=== PATIENT | female | born 1950 | race Hispanic/Latino ===

== ENCOUNTER 2022-03-25 22:14 | Emergency (ER) | payer OTHER, SELFPAY ==
--- OUTSIDE RECORDS SUMMARY | 2022-03-25 22:18 | XMS REPORT | Continuity of Care Document ---
:1950 Author Organization [facility] t Address [address] [place] [address] Care Team Providers Name Role Phone JOSE HORNE Primary Care Physician Unavailable JOSE HORNE Attending Clinician Unavailable Jose Horne MD Attending Clinician Lab, Ang - Db Attending Clinician Unavailable CLAUDIO HERNANDEZ Attending Clinician Unavailable Claudio Hernandez MD Attending Clinician Doctor Unassigned, [place] Attending Clinician Unavailable YEIMY DACOSTA Attending Clinician Unavailable Yeimy Dacosta PA-C Attending Clinician Lab, Adc Fam Pob I Attending Clinician Unavailable SARITA RITCHIE Attending Clinician Unavailable JOSE HORNE Admitting Clinician Unavailable CLAUDIO HERNANDEZ Admitting Clinician Unavailable Claudio Hernandez MD Admitting Clinician YEIMY DACOSTA Admitting Clinician Unavailable Payers Payer Name Policy Type Policy Number Effective Date Expiration Date Nelson MAYA/ALBA [id number] 2019 MEDICARE ADVANTAGE 00:00:00 Problems Condition Condition Condition Status Onset Resolution Last Treating Co mments Source Name Details Category Date Date Treatment Clinician Date Encounter Encounter Disease Active Overview: Univers for for 06-09 [place] ity of screening screening 00:00: [place] of [place] colonoscop colonoscop 00 note Me dical y y might be Branch different from the original. Added automatic ally from request for surgery [id number] Lichen Lichen Disease Active Univers sclerosus sclerosus 4-12 [place] of of [place] 00 [facility] Vaginal Vaginal Disease Active Univers itching itching 3-20 ity of 00:00: [place] [address] [place] [address] Essential Essential Disease Active 2014-03 Uni vers hypertensi hypertensi 2-28 it y of on on 00:00: [place] [address] [place] [address] Hyperlipem Hyperlipem Disease Active 2014-03 U nivers ia ia 2-28 ity of 00:00: [address] Allergies, Adverse Reactions, Alerts Allergy Allergy Status Severity Reaction(s) Onset Inactive Treating Comm ents Source Name Type Date Date Clinician Oxycodon Propensi Active Nausea 2014-03 Univer s e-Aspiri ty to and/or 2-28 ity of n adverse Vomiting 00:00: [place] reaction [facility] [place] OXYCODON DRUG Active Low N/V 2014-03 Univers E-ASPIRI 2-28 ity of N 00:00: [address] Social History Social Habit Start Date Stop Date Quantity Comments Source History SDRI University o f Alcohol Frequency [facility] edical Branch History [facility] University o f Alcohol Std [place] Medical Drinks Branch History [facility] o f Alcohol Binge [place] Medic al [place] Alcohol intake 2022-03-14 2022-03-14 0 /d University of 00:00:00 00:00:00 [facility] Exposure to 2022-01-21 2022-01-31 Not sure University SARS-CoV-2 00:00:00 09:26:00 [facility] (event) [place] Alcohol Comment 2015-11-24 2015-11-24 oocasional Universit y of 00:00:00 00:00:00 [facility] Tobacco use and 2015-03-01 2015-03-01 Smokeless tobacco Un iversity of exposure 00:00:00 00:00:00 non-user [facility] Sex Ass[birth year] At [birth year] Universit y of 00:00:00 00:00:00 [facility] Smoking Status Start Date Stop Date Source Never smoked tobacco [facility] Medications Ordered Filled Start Stop Current Ordering Indication Dosage Frequency Signature Comments Components Source Medication Medication Date Date Medication? Clinician (SIG) Name Name TOOTIEXAC 2021-03 Yes INSTILL Uni vers IN-DEXAMETH 2-05 ONE (1) ity o f ASONE 00:00: DROP(S) IN [place] 0.3-0.1 % 00 EACH EAR Medica l otic drops TWICE A Branch DAY. CIPROFLOXAC 2021-03 Yes INSTILL Uni vers IN-DEXAMETH 2-05 ONE (1) ity o f ASONE 00:00: DROP(S) IN [place] 0.3-0.1 % 00 EACH EAR Medica l otic drops TWICE A Branch DAY. atorvastati 2021-03 Yes [id number] 10mg Take 1 Univers n 10 mg 1-29 tablet by ity of tablet 00:00: mouth at [place] [address] bedtime. [facility] lisinopriL- 2021-03 Yes [id number] 1{tbl} Take 1 Univers hydrochloro 1-29 tablet by ity of thiazide 00:00: mouth in [place] 20-25 mg 00 the Medical per tablet morning. [facility] atorvastati 2021-03 Yes [id number] 10mg Take 1 Univers n 10 mg 1-29 tablet by ity of tablet 00:00: mouth at [place] 00 bedtime. [facility] lisinopriL- 2021-03 Yes [id number] 1{tbl} Take 1 Univers hydrochloro 1-29 tablet by ity of thiazide 00:00: mouth in [place] 20-25 mg 00 the Medical per tablet morning. [facility] atorvastati 2021-03 Yes [id number] 10mg Take 1 Univers n 10 mg 1-29 tablet by ity of tablet 00:00: mouth at [place] 00 bedtime. [facility] lisinopriL- 2021-03 Yes [id number] 1{tbl} Take 1 Univers hydrochloro 1-29 tablet by ity of thiazide 00:00: mouth in [place] 20-25 mg 00 the Medical per tablet morning. [facility] atorvastati 2021-03 Yes [id number] 10mg Take 1 Univers n 10 mg 1-29 tablet by ity of tablet 00:00: mouth at [place] 00 bedtime. [facility] lisinopriL- 2021-03 Yes [id number] 1{tbl} Take 1 Univers hydrochloro 1-29 tablet by ity of thiazide 00:00: mouth in [place] 20-25 mg 00 the Medical per tablet morning. [facility] atorvastati 2021-03 Yes [id number] 10mg Take 1 Univers n 10 mg 1-29 tablet by ity of tablet 00:00: mouth at [place] 00 bedtime. Medical Branch lisinopriL- 2021-03 Yes [id number] 1{tbl} Take 1 Univers hydrochloro 1-29 tablet by ity of thiazide 00:00: mouth in [place] 20-25 mg 00 the Medical per tablet morning. [facility] nirmatrelvi Yes [id number] 3{tbl} Take 3 Univers r-ritonavir 9-12 tablets by it y of (PAXLOVID, 00:00: mouth in [place] as EUA,) 300 00 the Medical mg (150 mg morning Branch x 2)-100 mg and 3 tablet tablets in the evening. nirmatrelvi Yes [id number] 3{tbl} Take 3 Univers r-ritonavir 9-12 tablets by it y of (PAXLOVID, 00:00: mouth in [place] as EUA,) 300 00 the Medical mg (150 mg morning Branch x 2)-100 mg and 3 tablet tablets in the evening. nirmatrelvi 2021- No [id number] 3{tbl} Take 3 Univers r-ritonavir 9-12 11-29 tablets by i ty of (PAXLOVID, 00:00: 00:00 [place] EUA,) 300 00 :00 the Medical mg (150 mg morning Branch x 2)-100 mg and 3 tablet tablets in the evening. nirmatrelvi 2021- No [id number] 3{tbl} Take 3 Univers r-ritonavir 9-12 11-29 tablets by i ty of (PAXLOVID, 00:00: 00:00 [place] EUA,) 300 00 :00 the Medical mg (150 mg morning Branch x 2)-100 mg and 3 tablet tablets in the evening. aspirin Yes 81mg Take 81 mg Univ ers (ASPIRIN 5-24 by mouth ity of LOW DOSE) 10:06: daily. [place] 81 mg EC 59 Medical tablet Branch Melatonin 5 0 Yes 5mg Take 5 mg U nivers mg Cap 5-24 by mouth ity of 10:06: at [place] [address] bedtime. Medical Branch cyanocobala 2021-[address] Unive rs min/cobamam 5-24 under the ity of [place] (B12 10:06: tongue. [place] [facility]) 59 Medical Branch L.acidophil 0 Yes Take by Uni vers /L.plantar/ 5-24 mouth. ity of Bifido 7 10:06: [place] ([facility] 59 Medical PROBIOTICS Branch ADULT ORAL) aspirin 2021-0 Yes 81mg Take 81 mg Univ ers (ASPIRIN 5-24 by mouth ity of LOW DOSE) 10:06: daily. [place] 81 mg EC 59 Medical tablet Branch Melatonin 5 2021-0 Yes 5mg Take 5 mg U nivers mg Cap 5-24 by mouth ity of 10:06: at [place] [address] bedtime. Medical Branch cyanocobala 2021-[address] Unive rs min/cobamam 5-24 under the ity of [place]elle (B12 10:06: tongue. [facility]) 59 Medical Branch L.acidophil 0 Yes Take by Uni vers /L.plantar/ 5-24 mouth. ity of Bifido 7 10:06: [place] ([facility] 59 Medical PROBIOTICS Branch ADULT ORAL) aspirin 2021-0 Yes 81mg Take 81 mg Univ ers (ASPIRIN 5-24 by mouth ity of LOW DOSE) 10:06: daily. [place] 81 mg EC 59 Medical tablet Branch Melatonin 5 2021-0 Yes 5mg Take 5 mg U nivers mg Cap 5-24 by mouth ity of 10:06: at [place] [address] bedtime. Medical Branch cyanocobala 2021-[address] Unive rs min/cobamam 5-24 under the ity of [place]elle (B12 10:06: tongue. [place] [facility]) 59 Medical Branch L.acidophil 2021-0 Yes Take by Uni vers /L.plantar/ 5-24 mouth. ity of Bifido 7 10:06: [place] ([facility] 59 Medical PROBIOTICS Branch ADULT ORAL) aspirin 2-0 Yes 81mg Take 81 mg Univ ers (ASPIRIN 5-24 by mouth ity of LOW DOSE) 10:06: daily. [place] 81 mg EC 59 Medical tablet Branch Melatonin 5 2021-0 Yes 5mg Take 5 mg U nivers mg Cap 5-24 by mouth ity of 10:06: at [place] [address] bedtime. Medical Branch cyanocobala 2021-[address] Unive rs min/cobamam 5-24 under the ity of [place]elle (B12 10:06: tongue. [place] [facility]) 59 Medical Branch L.acidophil 0 Yes Take by Uni vers /L.plantar/ 5-24 mouth. ity of Bifido 7 10:06: [place] ([facility] 59 Medical PROBIOTICS Branch ADULT ORAL) aspirin 2021-0 Yes 81mg Take 81 mg Univ ers (ASPIRIN 5-24 by mouth ity of LOW DOSE) 10:06: daily. [place] 81 mg EC 59 Medical tablet Branch Melatonin 5 2021-0 Yes 5mg Take 5 mg U nivers mg Cap 5-24 by mouth ity of 10:06: at [place] [address] bedtime. Medical Branch cyanocobala 2021-[address] Unive rs min/cobamam 5-24 under the ity of [place] (B12 10:06: tongue. [place] [facility]) 59 Medical Branch L.acidophil 0 Yes Take by Uni vers /L.plantar/ 5-24 mouth. ity of Bifido 7 10:06: [place] ([facility] 59 Medical PROBIOTICS Branch ADULT ORAL) aspirin 2021-0 Yes 81mg Take 81 mg Univ ers (ASPIRIN 5-24 by mouth ity of LOW DOSE) 10:06: daily. [place] 81 mg EC 59 Medical tablet Branch Melatonin 5 2021-0 Yes 5mg Take 5 mg U nivers mg Cap 5-24 by mouth ity of 10:06: at [place] [address] bedtime. Medical Branch cyanocobala 2021-[address] Unive rs min/cobamam 5-24 under the ity of [place] (B12 10:06: tongue. [place] [facility]) 59 Medical Branch L.acidophil 0 Yes Take by Uni vers /L.plantar/ 5-24 mouth. ity of Bifido 7 10:06: [place] ([facility] 59 Medical PROBIOTICS Branch ADULT ORAL) aspirin 2-0 Yes 81mg Take 81 mg Univ ers (ASPIRIN 5-24 by mouth ity of LOW DOSE) 10:06: daily. [place] 81 mg EC 59 Medical tablet Branch Melatonin 5 2021-0 Yes 5mg Take 5 mg U nivers mg Cap 5-24 by mouth ity of 10:06: at [place] [address] bedtime. Medical Branch cyanocobala [address] Unive rs min/cobamam 5-24 under the ity of [place] (B12 10:06: tongue. [place] [facility]) 59 Medical Branch L.acidophil 0 Yes Take by Uni vers /L.plantar/ 5-24 mouth. ity of Bifido 7 10:06: [place] ([facility] 59 Medical PROBIOTICS Branch ADULT ORAL) aspirin 2021-0 Yes 81mg Take 81 mg Univ ers (ASPIRIN 5-24 by mouth ity of LOW DOSE) 10:06: daily. [place] 81 mg EC 59 Medical tablet Branch Melatonin 5 2021-0 Yes 5mg Take 5 mg U nivers mg Cap 5-24 by mouth ity of 10:06: at [place] [address] bedtime. Medical Branch cyanocobala [address] Unive rs min/cobamam 5-24 under the ity of [place]elle (B12 10:06: tongue. [place] [facility]) 59 Medical Branch L.acidophil 0 Yes Take by Uni vers /L.plantar/ 5-24 mouth. ity of Bifido 7 10:06: [place] ([facility] 59 Medical PROBIOTICS Branch ADULT ORAL) aspirin 2021-0 Yes 81mg Take 81 mg Univ ers (ASPIRIN 5-24 by mouth ity of LOW DOSE) 10:06: daily. [place] 81 mg EC 59 Medical tablet Branch Melatonin 5 2021-0 Yes 5mg Take 5 mg U nivers mg Cap 5-24 by mouth ity of 10:06: at [place] [address] bedtime. Medical Branch cyanocobala [address] Unive rs min/cobamam 5-24 under the ity of [place]elle (B12 10:06: tongue. [place] [facility]) 59 Medical Branch L.acidophil 0 Yes Take by Uni vers /L.plantar/ 5-24 mouth. ity of Bifido 7 10:06: [place] ([facility] 59 Medical PROBIOTICS Branch ADULT ORAL) ciprofloxac 2021-0 Yes [id number] 1[drp] Place 1 Univers in-dexameth 5-24 Drop in ity o f asone 00:00: both ears [place] (CIPRODEX) 00 2 (two) Medica l 0.3-0.1 % times Branch otic drops daily. ciprofloxac 2022-0 Yes [id number] 1[drp] Place 1 Univers in-dexameth 5-24 Drop in ity o f asone 00:00: both ears [place] (CIPRODEX) 00 2 (two) Medica l 0.3-0.1 % times Branch otic drops daily. ciprofloxac Yes [id number] 1[drp] Place 1 Univers in-dexameth 5-24 Drop in ity o f asone 00:00: both ears [place] (CIPRODEX) 00 2 (two) Medica l 0.3-0.1 % times Branch otic drops daily. ciprofloxac Yes [id number] 1[drp] Place 1 Univers in-dexameth 5-24 Drop in ity o f asone 00:00: both ears [place] (CIPRODEX) 00 2 (two) Medica l 0.3-0.1 % times Branch otic drops daily. ciprofloxac 2021- No [id number] 1[drp] Place 1 Univers in-dexameth 5-24 11-29 Drop in ity of asone 00:00: 00:00 both ears [place] (CIPRODEX) 00 :00 2 (two) Medica l 0.3-0.1 % times Branch otic drops daily. ciprofloxac 2021- No [id number] 1[drp] Place 1 Univers in-dexameth 5-24 11-29 Drop in ity of asone 00:00: 00:00 both ears [place] (CIPRODEX) 00 :00 2 (two) Medica l 0.3-0.1 % times Branch otic drops daily. ATORVASTATI Yes [id number] TAKE ONE Univers N 10 mg 1-05 (1) ity of tablet 00:00: TABLET(S) [place] 00 BY MOUTH Medical AT Branch BEDTIME. LISINOPRIL- 0 Yes [id number] TAKE ONE Univers HYDROCHLORO 1-05 (1) ity of THIAZIDE 00:00: [place]T(S) [place] 20-25 mg 00 BY MOUTH Medical per tablet ONCE A Branch DAY. ATORVASTATI Yes [id number] TAKE ONE Univers N 10 mg 1-05 (1) ity of tablet 00:00: TABLET(S) [place] 00 BY MOUTH Medical AT [place] BEDTIME. LISINOPRIL- 2021-0 Yes [id number] TAKE ONE Univers HYDROCHLORO 1-05 (1) ity of THIAZIDE 00:00: TABLET(S) [place] 20-25 mg 00 BY MOUTH Medical per tablet ONCE A Branch DAY. ATORVASTATI 2021-0 Yes [id number] TAKE ONE Univers N 10 mg 1-05 (1) ity of tablet 00:00: TABLET(S) [place] 00 BY MOUTH Medical AT [place] BEDTIME. LISINOPRIL- 2021-0 Yes [id number] TAKE ONE Univers HYDROCHLORO 1-05 (1) ity of THIAZIDE 00:00: TABLET(S) [place] 20-25 mg 00 BY MOUTH Medical per tablet ONCE A Branch DAY. ATORVASTATI 2021-0 Yes [id number] TAKE ONE Univers N 10 mg 1-05 (1) ity of tablet 00:00: TABLET(S) [place] 00 BY MOUTH Medical AT [place] BEDTIME. LISINOPRIL- 2021-0 Yes [id number] TAKE ONE Univers HYDROCHLORO 1-05 (1) ity of THIAZIDE 00:00: TABLET(S) [place] 20-25 mg 00 BY MOUTH Medical per tablet ONCE A Branch DAY. ATORVASTATI 2021-0 2021- No [id number] TAKE ONE Univers N 10 mg -05 01-31 (1) ity of tablet 00:00: 00:00 TABLET(S) [place] 00 :00 BY MOUTH Medical AT [place] BEDTIME. LISINOPRIL- 2021-0 2- No [id number] TAKE ONE Univers HYDROCHLORO -05 01-31 (1) ity of THIAZIDE 00:00: 00:00 TABLET(S) [place] as 20-25 mg 00 :00 BY MOUTH Medical per tablet ONCE A Branch DAY. ATORVASTATI 2021-0 2021- No [id number] TAKE ONE Univers N 10 mg -05 01-31 (1) ity of tablet 00:00: 00:00 TABLET(S) [place] 00 :00 BY MOUTH Medical AT [place] BEDTIME. LISINOPRIL- 2021-0 2021- No [id number] TAKE ONE Univers HYDROCHLORO -05 01-31 (1) ity of THIAZIDE 00:00: 00:00 TABLET(S) [place] as 20-25 mg 00 :00 BY MOUTH Medical per tablet ONCE A DAY. Immunizations Ordered Filled Immunization Date Status Comments [facility] e Immunization Name Name Pneumococcal 2021-01-25 Completed University o f Polysaccharide, 00:00:00 [place] Med ical PPSV23 (PNEUMOVAX) Branch Pneumococcal 2021-01-25 Completed University o f Polysaccharide, 00:00:00 [place] Med ical PPSV23 (PNEUMOVAX) Branch Pneumococcal 2021-01-25 Completed University o f Polysaccharide, 00:00:00 [place] Med ical PPSV23 (PNEUMOVAX) Branch Pneumococcal 2021-01-25 Completed University o f Polysaccharide, 00:00:00 [place] Med ical PPSV23 (PNEUMOVAX) Branch Pneumococcal 2021-01-25 Completed University o f Polysaccharide, 00:00:00 [place] Med ical PPSV23 (PNEUMOVAX) Branch Pneumococcal 2021-01-25 Completed University o f Polysaccharide, 00:00:00 [place] Med ical PPSV23 (PNEUMOVAX) Branch Pneumococcal 2021-01-25 Completed University o f Polysaccharide, 00:00:00 [place] Med ical PPSV23 (PNEUMOVAX) Branch Pneumococcal 2021-01-25 Completed University o f Polysaccharide, 00:00:00 [place] Med ical PPSV23 (PNEUMOVAX) Branch Pneumococcal 2021-01-25 Completed University o f Polysaccharide, 00:00:00 [place] Med ical PPSV23 (PNEUMOVAX) Branch SARS-COV-2 COVID-19 2021-01-04 Completed Unive rsity of PFIZER VACCINE 00:00:00 [facility] SARS-COV-2 COVID-19 2021-01-04 Completed Unive rsity of PFIZER VACCINE 00:00:00 [facility] SARS-COV-2 COVID-19 2021-01-04 Completed Unive rsity of PFIZER VACCINE 00:00:00 [facility] SARS-COV-2 COVID-19 2021-01-04 Completed Unive rsity of PFIZER VACCINE 00:00:00 [facility] SARS-COV-2 COVID-19 2021-01-04 Completed Unive rsity of PFIZER VACCINE 00:00:00 [facility] SARS-COV-2 COVID-19 2021-01-04 Completed Unive rsity of PFIZER VACCINE 00:00:00 [facility] Branch SARS-COV-2 COVID-19 2021-01-04 Completed Unive rsity of PFIZER VACCINE 00:00:00 [facility] Branch SARS-COV-2 COVID-19 2021-01-04 Completed Unive rsity of PFIZER VACCINE 00:00:00 [facility] Branch SARS-COV-2 COVID-19 2021-01-04 Completed Unive rsity of PFIZER VACCINE 00:00:00 [facility] Branch SARS-COV-2 COVID-19 2020-05-22 Completed Unive rsity of PFIZER VACCINE 00:00:00 [facility] Branch SARS-COV-2 COVID-19 2020-05-22 Completed Unive rsity of PFIZER VACCINE 00:00:00 [facility] Branch SARS-COV-2 COVID-19 2020-05-22 Completed Unive rsity of PFIZER VACCINE 00:00:00 [facility] Branch SARS-COV-2 COVID-19 2020-05-22 Completed Unive rsity of PFIZER VACCINE 00:00:00 [facility] Branch SARS-COV-2 COVID-19 2020-05-22 Completed Unive rsity of PFIZER VACCINE 00:00:00 [facility] Branch SARS-COV-2 COVID-19 2020-05-22 Completed Unive rsity of PFIZER VACCINE 00:00:00 [facility] Branch SARS-COV-2 COVID-19 2020-05-22 Completed Unive rsity of PFIZER VACCINE 00:00:00 [facility] Branch SARS-COV-2 COVID-19 2020-05-22 Completed Unive rsity of PFIZER VACCINE 00:00:00 [facility] Branch SARS-COV-2 COVID-19 2020-05-22 Completed Unive rsity of PFIZER VACCINE 00:00:00 [facility] Branch SARS-COV-2 COVID-19 2020-05-01 Completed Unive rsity of PFIZER VACCINE 00:00:00 [facility] Branch SARS-COV-2 COVID-19 2020-05-01 Completed Unive rsity of PFIZER VACCINE 00:00:00 [facility] SARS-COV-2 COVID-19 2020-05-01 Completed Unive rsity of PFIZER VACCINE 00:00:00 [facility] Branch SARS-COV-2 COVID-19 2020-05-01 Completed Unive rsity of PFIZER VACCINE 00:00:00 [facility] SARS-COV-2 COVID-19 2020-05-01 Completed Unive rsity of PFIZER VACCINE 00:00:00 [facility] SARS-COV-2 COVID-19 2020-05-01 Completed Unive rsity of PFIZER VACCINE 00:00:00 [facility] SARS-COV-2 COVID-19 2020-05-01 Completed Unive rsity of PFIZER VACCINE 00:00:00 [facility] SARS-COV-2 COVID-19 2020-05-01 Completed Unive rsity of PFIZER VACCINE 00:00:00 [facility] SARS-COV-2 COVID-19 2020-05-01 Completed Unive rsity of PFIZER VACCINE 00:00:00 [facility] Vital Signs Vital Name Observation Time Observation Value Comments Source Systolic blood 2022-01-31 16:02:00 110 mm[Hg] Univer sity of pressure [facility] Diastolic blood 2022-01-31 16:02:00 73 mm[Hg] Unive rsity of pressure [facility] Heart rate 2022-01-31 16:02:00 86 /min Universi ty [facility] Body temperature 2022-01-31 16:02:00 [facility]11 [facility] height 2022-01-31 16:02:00 160 cm Universi ty [facility] Body weight 2022-01-31 16:02:00 56.246 kg Universi ty [facility] BMI 2022-01-31 16:02:00 21.97 kg/m2 Universi ty [facility] Systolic blood 2021-07-26 14:55:00 130 mm[Hg] Univer sity of pressure [facility] Diastolic blood 2021-07-26 14:55:00 85 mm[Hg] Unive rsity of pressure [facility] Heart rate 2021-07-26 14:55:00 69 /min Universi ty [facility] Body weight 2021-07-26 14:55:00 59.421 kg Universi ty [facility] BMI 2021-07-26 14:55:00 25.58 [facility] Procedures Procedure Date / Time Performed Performing Clinician [facility] e CONSENT/REFUSAL FOR 2022-03-14 15:45:19 Doctor Unassigned, No [facility] DIAGNOSIS AND [facility] TREATMENT ASSIGNMENT OF BENEFITS 2022-03-14 15:45:05 Doctor Unassigned, No [facility] Encounters Start End Encounter Admission Attending Care Care Encounter Source Date/Time Date/Time Type Type Clinicians Facility Department ID 2022-03-14 2022-03-14 Outpatient Choco HORNE [facility] [id number] Univers 09:45:46 23:59:00 JOSE treadwell [facility] 2022-03-14 2022-03-14 [facility] [id number] Univers 09:45:46 23:59:00 Encounter Jose LAWSMARISOL [id number] ity of [place] [id number] [place] [id number] [address] 2022-02-06 2022-02-06 [facility] [id number] Univers 00:00:00 00:00:00 [facility] [id number] it y of [place] KATERINEMARISOL [id number] [place] as JASON?BLEA [id number] [facility] [address] [place] MEDICAL OFFICE BUILDING 2022-01-31 2022-01-31 Operations Scheduler Lab, Ang - Db [facility] [id number] Univers 10:30:00 10:45:00 Visit Jose Horne jaqueline OSUNA [id number] .10 ity of [place] [id number] [place] as JASON?BLEA [id number] Ca bisitera [facility] [address] [place] MEDICAL OFFICE BUILDING 2022-01-31 2022-01-31 Outpatient Choco HORNE [facility] [id number] Univers 10:30:00 10:30:00 JOSE treadwell [facility] 2022-01-31 2022-01-31 Office [facility] [id number] Univers 10:00:00 10:15:00 Visit Jose [facility] [id number] it y of [place] [id number] [place] as JASON?BLEA [id number] Ca ravi [address] MEDICAL OFFICE [facility] 2021-12-12 2021-12-12 Patient [facility] [id number] Univers 00:00:00 00:00:00 Secure Msg [facility] [id number] ity of [place] [id number] [place] as JASON?BLEA [id number] Ca ravi [address] MEDICAL OFFICE [facility] 2021-11-14 2021-11-14 Patient [facility] [id number] Univers 00:00:00 00:00:00 Secure Msg [facility] [id number] ity of [place] [id number] [place] as JASON?BLEA [id number] [address] OFFICE [facility] 2021-07-26 2021-07-26 [facility] [id number] Univers 10:00:00 10:19:54 JOSE [facility] 2021-07-26 2021-07-26 Office [facility] 1.2.840.114 [id number] Univers 10:00:00 10:15:00 Visit [facility] [id number] it y of [place] [id number] [place] as JASON?BLEA [phone] [address] OFFICE [facility] 2021-07-26 2021-07-26 [facility] [id number] Univers 10:00:00 10:00:00 JOSE kris [facility] 2021-07-18 2021-07-18 [facility] TRAY [id number] Univers 10:49:00 14:11:00 CLAUDIO treadwell [facility] 2021-07-18 2021-07-18 [facility] 1.2.840.114 [id number] Univers 10:49:00 14:11:00 Encounter Claudio DE LA CRUZ [id number] ity of [id number] [phone] [facility] [address] 2021-07-18 2021-07-18 Surgery [facility] [id number] Univers 12:15:00 13:14:00 Claudio DE LA CRUZ 350.1.13.10 i ty of [facility] [id number] [phone] [facility] [address] 2021-07-18 2021-07-18 Orders Doctor GUDELIA 1.2.840.114 [id number] Univers 00:00:00 00:00:00 Only Unassigned, CAMP[place]LL 350.1.13.10 ity of [place] [facility] [id number] [place] as [phone] [address] 2021-07-15 2021-07-15 Telephone [facility] 1.2.840.114 [id number] Univers 00:00:00 00:00:00 Claudio DOROTHY 350.1.13.10 i ty of [id number] PROF[place] [phone] Ca dical NAL [address] [place] [address] 2021-06-09 2021-06-09 Prep For [facility] 1.2.840.114 [id number] Univers 00:00:00 00:00:00 Surgery Claudio LAWSMARISOL [id number] i ty of [facility] [id number] [phone] Ca dical NAL [address] [place] [address] 2021-06-07 2021-06-07 Outpatient R [facility] [id number] Univers 14:00:00 14:24:27 CLAUDIO treadwell of [facility] 2021-06-07 2021-06-07 Office [facility] [id number] Univers 14:00:00 14:24:27 Visit Claudio DE LA CRUZ [id number] i ty of [facility] [id number] [phone] Ca dical NAL 188 [facility] 2021-05-05 2021-05-05 Outpatient R SB [facility] [id number] Univers 10:00:00 10:00:00 CLAUDIO kris [facility] 2021-03-09 2021-03-09 [facility] 1.2.840.114 [id number] Univers 00:00:00 00:00:00 [facility] [id number] it y of [place] [id number] [place] as JASON?BLEA [phone] [facility] [address] MEDICAL OFFICE [facility] 2021-03-04 2021-03-04 [facility] 1.2.840.114 [id number] Univers 00:00:00 00:00:00 [facility] [id number] it y of [place] [facility] [id number] [place] JASON?BLEA [phone] [address] 2021-01-31 2021-01-31 Outpatient R PRANEETH [facility] [id number] Univers 12:24:50 23:59:00 YEIMY kris [facility] 2021-01-31 2021-01-31 [facility] 1.2.840.114 [id number] Univers 12:24:50 23:59:00 Encounter Yeimy DOROTHY 350.1.13.10 ity of [id number] [phone] [address] 2021-01-25 2021-01-25 Operations Scheduler Lab, Ang - Db [facility] [id number] Univers 11:02:14 11:17:14 Visit Jose Horne [facility] 350.1.13 .10 ity of [place] [id number] [place] as JASON?BLEA [phone] [facility] 353 [facility] OFFICE [facility] 2021-01-25 2021-01-25 Outpatient R OZZIE [facility] [id number] Univers 11:15:00 11:15:00 JOSE treadwell [facility] 2021-01-25 2021-01-25 Outpatient R OZZIE [facility] [id number] Univers 10:30:00 11:00:23 JOSE [facility] 2021-01-25 2021-01-25 Office [facility] 1.2.840.114 [id number] Univers 10:14:15 11:00:23 Visit Jose [facility] 350.1.13.10 it y of [place] 4.2.7.2.686 [place] JASON?BLEA [phone] [facility] DEEPA [address] [place] [address] 2021-01-25 2021-01-25 Orders Doctor GUDELIA 1.2.840.114 [id number] Univers 00:00:00 00:00:00 Only Unassigned, CAMPBELL 350.1.13.10 ity of [place] [facility] [id number] [place] as [phone] [address] 2020-09-03 2020-09-03 [facility] [id number] Univers 16:30:00 16:30:00 JOSE [facility] 2020-09-03 2020-09-03 Office [facility] 1.2.840.114 [id number] Univers 16:12:02 16:27:02 Visit Jose [facility] [id number] it y of [place] [id number] [place] as Professio [phone] Ca bisist. [facility] 044 [facility] One 2020-06-15 2020-06-15 Office [facility] [id number] Univers 12:46:23 13:59:29 Visit Yeimy De La Cruz 350.1.13.10 i ty of [id number] [phone] Ca bisist. [facility] [address] [facility] 2020-06-15 2020-06-15 Outpatient R PRANEETH [facility] [id number] Univers 13:00:00 13:00:00 YEIMY [facility] 2020-05-22 2020-05-22 Outpatient [facility] [id number] Univers 12:45:00 12:45:00 ity of [facility] 2020-05-01 2020-05-01 Outpatient [facility] [id number] Univers 12:45:00 12:45:00 ity of [facility] 2020-03-20 2020-03-20 Refill [facility] 1.2.840.114 [id number] Univers 00:00:00 00:00:00 [facility] [id number] it y of [place] [id number] [place] as Professio [phone] [address] Office Building One 2020-01-14 2020-01-14 [facility] [id number] Univers 11:05:02 23:59:00 Encounter Jose De La Cruz 350.1.13.10 ity of [place] [phone] [facility] [address] 2020-01-14 2020-01-14 Outpatient R [facility] [id number] Univers 00:00:00 00:00:00 JOSE ity [facility] 2020-01-14 2020-01-14 Orders Doctor GUDELIA 1.2.840.114 [id number] Univers 00:00:00 00:00:00 Only Unassigned, CAMPBELL 350.1.13.10 ity of [place] [facility] [id number] [place] [phone] [place] [address] [address] 2019-12-30 2019-12-30 Operations Scheduler Lab, [facility] Pob I [facility] 1.2. 840.114 [id number] Univers 10:36:15 10:56:15 Visit Jose Horne [facility] 350.1.13 .10 ity of [place] [id number] [place] as Professio [phone] [address] Office Building One 2019-12-30 2019-12-30 Office [facility] 1.2.840.114 [id number] Univers 10:00:31 10:30:31 Visit Jose [facility] 350.1.13.10 it y of [place] [id number] [place] Professio [phone] [address] Office [facility] 2019-12-30 2019-12-30 [facility] [id number] Univers 10:15:00 10:15:00 JOSE ity of [facility] 2019-12-30 2019-12-30 Orders Doctor GUDELIA 1.2.840.114 [id number] Univers 00:00:00 00:00:00 Only Unassigned, CAMPBELL 350.1.13.10 ity of [place] [facility] [id number] [place] as [phone] [address] 2019-12-30 2019-12-30 Telephone [facility] 1.2.840.114 [id number] Univers 00:00:00 00:00:00 [facility] 350.1.13.10 it y of [place] [id number] [place] Professio [phone] [address] 2019-12-04 2019-12-04 [facility] 1.2.840.114 [id number] Univers 00:00:00 00:00:00 [facility] [id number] it y of [place] [id number] [place] Professio [phone] [address] 2019-10-28 2019-10-28 Outpatient R SARITA RITCHIE [facility] [id number] Univers 13:30:00 13:30:00 ity of [facility] 2019-10-01 2019-10-01 Telephone [facility] 1.2.840.114 [id number] Univers 00:00:00 00:00:00 Jose De [place] 350.1.13.10 i ty of [id number] Profess[place] [phone] [address] 2019-09-11 2019-09-11 Orders Doctor GUDELIA 1.2.840.114 [id number] Univers 00:00:00 00:00:00 Only Unassigned, CAMPBELL 350.1.13.10 ity of [place] [facility] [id number] [place] [phone] [place] [address] [address] 2019-09-05 2019-09-05 Khoiashleigh Ozzie [facility] 1.2.840.114 [id number] Univers 00:00:00 00:00:00 [facility] 350.1.13.10 it y of [place] [id number] [place] as Sarah [phone] Ca dical [facility] [address] Office Building One 2019-08-25 2019-08-25 Orders Doctor GUDELIA 1.2.840.114 [id number] Univers 00:00:00 00:00:00 Only Unassigned, CAMPBELL 350.1.13.10 ity of [place] [facility] [id number] [place] [phone] [place] [address] [address] Results This patient has no known results.
[2022-03-25] MEDS ORDERED: FENTANYL CITR 100 MCG/2 ML ONE (23:16)
[2022-03-25] MEDS ORDERED: ONDANSETRON 4 MG/2 ML VIAL ONE (23:50)
[2022-03-25] MEDS ORDERED: NA CHLORIDE 0.9% 250 ML ONE (23:50)
[2022-03-25] MEDS ORDERED: KETAMINE HCL 500 MG/5 ML VIAL ONE (23:51)
[2022-03-25] MEDS ORDERED: MORPHINE 2 MG/ML SYR ONE (23:55)
--- NOTE | 2022-03-26 01:41 | EDPHYS ---
Physician Documentation [facility] Name: Robyn Sommers Age: 71 yrs Sex: Female : 1950 Arrival Date: 03/25/2022 Time: 22:17 Bed 14 Private MD: ED Physician Kelvin Saleem HPI: 03/25 22:45 This 71 yrs old Female presents to ER via Wheelchair with complaints of Fall cp Injury, Shoulder Injury. 22:45 The patient or guardian complains of decreased range of motion, an injury. right cp shoulder. Context: resulted from a fall, after losing balance while dancing, The patient experiences decreased range of motion, when attempts to raise arm. Onset: The symptoms/episode began/occurred just prior to arrival. Associated signs and symptoms: The patient has no apparent associated signs or symptoms. Historical: - Allergies: 22:54 percodan; ke1 - PMHx: 22:36 Hypertensive disorder; Hypercholesterolemia; ke1 - Immunization history:: Client reports receiving the 2nd dose of the Covid vaccine. - Social history:: Smoking status: Patient denies any tobacco usage or history of. ROS: 22:50 Constitutional: Negative for body aches, chills, fever, poor PO intake. cp 22:50 Cardiovascular: Negative for chest pain, edema, palpitations. cp 22:50 Eyes: Negative for injury, pain, redness, and discharge. cp 22:50 Neck: Negative for pain with movement, pain at rest, stiffness. 22:50 Respiratory: Negative for cough, shortness of breath, wheezing. 22:50 Abdomen/GI: Negative for abdominal pain, nausea, vomiting, and diarrhea. 22:50 Back: Negative for pain at rest, pain with movement. 22:50 MS/extremity: Positive for injury or acute deformity, decreased range of motion, pain, of the right shoulder, Negative for paresthesias. 22:50 Neuro: Negative for altered mental status, loss of consciousness, numbness, syncope, weakness. 22:50 All other systems are negative. Exam: 22:55 Constitutional: The patient appears in no acute distress, alert, awake, cp non-diaphoretic, non-toxic, well developed, well nourished, uncomfortable. 22:55 Head/Face: Normocephalic, atraumatic. cp 22:55 Eyes: Periorbital structures: appear normal, Pupils: equal, round, and reactive to light and accomodation, Lids and lashes: appear normal, bilaterally. 22:55 ENT: External ear(s): are unremarkable, Nose: is normal, Mouth: Lips: moist, Oral mucosa: moist, Posterior pharynx: is normal, airway is patent, no erythema, no exudate. 22:55 Neck: C-spine: vertebral tenderness, is not appreciated, crepitus, is not appreciated, ROM/movement: is normal, is supple, without pain, no range of motions limitations. 22:55 Chest/axilla: Inspection: normal, Palpation: is normal, no crepitus, no tenderness. 22:55 Cardiovascular: Rate: normal, Rhythm: regular, Edema: is not appreciated, JVD: is not appreciated. 22:55 Respiratory: the patient does not display signs of respiratory distress, Respirations: normal, Breath sounds: are clear throughout, no decreased breath sounds, no stridor, no wheezing. 22:55 Abdomen/GI: Inspection: abdomen appears normal, Palpation: abdomen is soft and non-tender, in all quadrants. 22:55 Back: pain, is absent, ROM is normal. 22:55 Musculoskeletal/extremity: Extremities: grossly normal except: noted in the right shoulder: decreased ROM, deformity, pain, tenderness, ROM: limited passive range of motion, in the right shoulder. 22:55 Neuro: Orientation: to person, place \T\ time. Mentation: is normal, Sensation: is normal. Vital Signs: 22:35 BP 136 / 85; Pulse 88; Temp 99(A); Pulse Ox 100% ; Weight 56.25 kg; Height 5 ft. ke1 (152.40 cm); Pain 10/10; 03/26 02:19 BP 131 / 77; Pulse 73; Resp 21; Temp 98.8(O); Pulse Ox 100% ; Pain 0/10; ke1 03/25 22:35 Body Mass Index 24.22 (56.25 kg, 152.40 cm) ke1 Procedures: 01:38 Reduction: of the right shoulder, using traction, Immobilized with shoulder sling. cp Patient tolerated well. Post reduction film - reveals normal alignment. Moderate sedation: Pre-procedure assessment: the patient has been NPO an unknown amount of time prior to arrival, Airway assessment: able to hyperextend neck, able to maintain airway, can open mouth without difficulty, Monitoring during procedure: ekg monitor tech, continuous pulse oximetry, nurse at bedside at all times, Medications employed: Ketamine, 60 mg(s), Post-procedure assessment: Respiratory status: even and unlabored, a reversal agent was not used. MDM: 03/25 22:36 Patient medically screened. 03/26 01:40 Data reviewed: vital signs, nurses notes, radiologic studies, plain films. 01:40 Consideration of Admission/Observation Escalation of care including cp admission/observation considered. I considered the following discharge prescriptions or medication management in the emergency department Medications were administered in the Emergency Department. See MAR. Independent interpretation of the following test(s) in the Emergency Department. Test considered but Not performed: Other Details CT traumagram. Counseling: I had a detailed discussion with the patient and/or guardian regarding: the historical points, exam findings, and any diagnostic results supporting the discharge/admit diagnosis, radiology results, the need for outpatient follow up, a orthopedic surgeon, to return to the emergency department if symptoms worsen or persist or if there are any questions or concerns that arise at home. Response to treatment: the patient's symptoms have markedly improved after treatment, and as a result, I will discharge patient. 03/25 22:40 Order name: XRAY Shoulder RIGHT [facility] 03/25 22:44 Order name: XRAY Humerus RIGHT 03/25 22:44 Order name: XRAY Elbow RIGHT 3 view 03/26 01:09 Order name: XRAY Shoulder RIGHT 2 view 03/25 22:44 Order name: IV; Complete Time: 23:16 cp Administered Medications: 03/25 23:16 Drug: fentaNYL (PF) 25 mcg Route: IVP; Site: left antecubital; ke1 23:30 Follow up: Response: Pain is unchanged, physician notified ke1 23:50 Drug: NS 0.9% 500 ml Route: IV; Rate: 250 ml/hr; Site: left antecubital; ke1 23:58 Drug: Zofran (Ondansetron) 4 mg Route: IVP; Site: left antecubital; ke1 23:58 Drug: morphine 2 mg Route: IVP; Infused Over: 4 mins; Site: left antecubital; ke1 03/26 01:00 Drug: Ketalar (ketamine) 1 mg/kg {Note: by provider.} Route: IVP; Site: left ke1 antecubital; 01:58 Not Given (Duplicate Order): Ketamine 1 mg/kg IVP once ke1 Disposition: 02:25 Co-signature as Attending Physician, Kelvin Saleem MD I reviewed the patient's care rt provided by Advanced Practice Provider \T\ agree w/ the diagnosis \T\ care plan. I personally saw the pt \T\ performed a substantive portion of the visit, incldng all aspects of the (History/Exam/Medical Decision Making). Was present for the sedation, reduction. I reviewed the images, the patient has satisfactory reduction.. Disposition Summary: 03/26/22 01:40 Discharge Ordered Location: Home cp Problem: new cp Symptoms: have improved cp Condition: Stable cp Diagnosis - Other dislocation of right shoulder joint, initial encounter cp - Fall on same level, unspecified cp Followup: cp - With: - When: 2 - 3 days - Reason: Recheck today's complaints Discharge Instructions: - Discharge Summary Sheet cp - Shoulder Dislocation cp Forms: - Medication Reconciliation Form cp - Thank You Letter cp - Antibiotic Education cp - Prescription Opioid Use cp Prescriptions: - Ibuprofen 600 mg Oral Tablet - take 1 tablet by ORAL route every 8 hours As needed take with food; 30 tablet; cp Refills: 0, Product Selection Permitted - Tramadol 50 mg Oral Tablet - take 1 tablet by ORAL route every 8 hours as needed; 12 tablet; Refills: 0, cp Product Selection Permitted Signatures: Dispatcher [employer] EDIN Cr Martinez PA PA cp Fifi Dexter RN RN ke1 Kelvin Saleem MD MD rt Corrections: (The following items were deleted from the chart) 03/25 22:54 22:36 Allergies: No Known Allergies; ke1 ke1
--- NOTE | 2022-03-26 01:41 | ER ---
Nurse's Notes [facility] Name: Robyn Sommers Age: 71 yrs Sex: Female : 1950 Arrival Date: 03/25/2022 Time: 22:17 Bed 14 Private MD: Diagnosis: Other dislocation of right shoulder joint, initial encounter;Fall on same level, unspecified Presentation: 03/25 22:31 Chief complaint: Patient states: Fell on right shoulder while dancing an hour ago, did ke1 not hit her head. 22:35 Coronavirus screen: Vaccine status: Patient reports receiving the 2nd dose of the covid ke1 vaccine. Ebola Screen: No symptoms or risks identified at this time. Risk Assessment: Do you want to hurt yourself or someone else? Patient reports no desire to harm self or others. Onset of symptoms was March 25, 2022 at 21:30. 22:35 Method Of Arrival: Wheelchair ke 22:35 Acuity: HOSSEIN 3 ke1 22:35 Initial Sepsis Screen: Does the patient meet any 2 criteria? No. Patient's initial ke1 sepsis screen is negative. Does the patient have a suspected source of infection? No. Patient's initial sepsis screen is negative. Triage Assessment: 22:36 General: Appears uncomfortable, Behavior is appropriate for age. Pain: Complains of ke1 pain in R shoulder Pain does not radiate. Pain currently is 10 out of 10 on a pain scale. Quality of pain is described as aching. Neuro: Level of Consciousness is awake, alert, obeys commands, Oriented to person, place, time, situation. Respiratory: Airway is patent Respiratory effort is even, unlabored. Musculoskeletal: Capillary refill < 3 seconds, Range of motion: limited in right shoulder, right elbow and right wrist. Historical: - Allergies: 22:54 percodan; ke1 - PMHx: 22:36 Hypertensive disorder; Hypercholesterolemia; ke1 - Immunization history:: Client reports receiving the 2nd dose of the Covid vaccine. - Social history:: Smoking status: Patient denies any tobacco usage or history of. Screenin:[facility] ED Fall Risk Assessment (Adult) History of falling in the last 3 months, ke1 including since admission Yes- single mechanical fall (1 pt) Confusion or Disorientation No (0 pts) Intoxicated or Sedated No (0 pts) Impaired Gait No (0 pts) Mobility Assist Device Used No (0 pt) Altered Elimination No (0 pt) Score/Fall Risk Level 0 - 2 = Low Risk Oriented to surroundings, Maintained a safe environment, Educated pt \T\ family on fall prevention, incl call for assistance when getting out of bed. Abuse screen: Denies threats or abuse. Nutritional screening: No deficits noted. Tuberculosis screening: No symptoms or risk factors identified. Assessment: 03/26 02:21 Reassessment: Reduction procedure well tolerated, see paper charting. ke1 Vital Signs: 03/25 22:35 BP 136 / 85; Pulse 88; Temp 99(A); Pulse Ox 100% ; Weight 56.25 kg; Height 5 ft. ke1 (152.40 cm); Pain 10/10; 03/26 02:19 BP 131 / 77; Pulse 73; Resp 21; Temp 98.8(O); Pulse Ox 100% ; Pain 0/10; ke1 03/25 22:35 Body Mass Index 24.22 (56.25 kg, 152.40 cm) ke1 ED Course: 03/25 22:17 Patient arrived in ED. jj6 22:31 Fifi Dexter, SAL is Primary Nurse. ke1 22:35 Cr Martinez PA is PHCP. cp 22:35 Kelvin Saleem MD is Attending Physician. cp 22:36 Triage completed. ke1 23:05 XRAY Shoulder RIGHT 2 view In Process Unspecified. EDMS 23:05 XRAY Humerus RIGHT In Process Unspecified. EDMS 23:05 XRAY Elbow RIGHT 3 view In Process Unspecified. EDMS 23:15 Inserted saline lock: 20 gauge in left antecubital area, using aseptic technique. ke1 23:16 Arm band placed on left wrist. ke1 23:16 Bed in low position. Call light in reach. Side rails up X 1. ke1 03/26 01:37 XRAY Shoulder RIGHT 2 view In Process Unspecified. EDMS 01:40 Ravi Joy MD is Referral Physician. cp 02:20 reduction. IV discontinued. ke1 Administered Medications: 03/25 23:16 Drug: fentaNYL (PF) 25 mcg Route: IVP; Site: left antecubital; ke1 23:30 Follow up: Response: Pain is unchanged, physician notified ke1 23:50 Drug: NS 0.9% 500 ml Route: IV; Rate: 250 ml/hr; Site: left antecubital; ke1 23:58 Drug: Zofran (Ondansetron) 4 mg Route: IVP; Site: left antecubital; ke1 23:58 Drug: morphine 2 mg Route: IVP; Infused Over: 4 mins; Site: left antecubital; ke1 03/26 01:00 Drug: Ketalar (ketamine) 1 mg/kg {Note: by provider.} Route: IVP; Site: left ke1 antecubital; 01:58 Not Given (Duplicate Order): Ketamine 1 mg/kg IVP once ke1 Medication: 02:21 VIS not applicable for this client. ke1 Outcome: 01:40 Discharge ordered by . cp 02:20 Discharged to home via wheelchair, with family. ke1 02:20 Condition: good 02:20 Discharge instructions given to patient. 02:22 Patient left the ED. ke1 Signatures: Dispatcher [employer] EDMS Cr Martinez PA PA cp Jeffries, Jennifer [email or web address] Fifi Dexter RN RN ke1 Corrections: (The following items were deleted from the chart) 03/25 22:50 22:35 BP 136 / 85; Pulse 88bpm; Pulse Ox 100%; 56.25 kg; Height 5 ft.; BMI: 24.2; Pain ke1 12/12; ke1 22:54 22:36 Allergies: No Known Allergies; ke1 ke1
[2022-03-26 04:59] VITALS: O2SAT 100
[2022-03-26 05:18] VITALS: BP 131/77; TEMP 98.8
--- NOTE | 2022-03-27 12:34 | RAD REPORT ---
EXAM DESCRIPTION: Humerus Right 03/25/2022 11:38 PM PECAN GROWER CLINICAL HISTORY: 71 years, Female, PAIN Humerus Right COMPARISON: None. FINDINGS: 2 X-ray views of the right humeral (frontal and lateral views) were performed. There are f indings highly suggestive of anterior inferior right shoulder dislocation. No definitive evidence for acute bony injuries. Soft tissues demonstrate to unremarkable There are no gross intraosseous lesion s. No periosteal reaction were seen. IMPRESSION: Findings highly suggestive of anterior inferior right shoulder dislocation. Electronically signed by: Chaz Farr MD 03/25/2022 11:40 PM PEC[facility] GROWER Due to temporary technical issues with the PACS/Fluency reporting system, reports are being signed by the in house radiologists without review as a courtesy to insure prompt reporting. The interpreting radiologist is fully responsible for the content of the report
--- NOTE | 2022-03-27 12:54 | RAD REPORT ---
EXAM DESCRIPTION: Shoulder Right 2 View 03/25/2022 11:36 PM [employer] CLINICAL HISTORY: 71 years, Female, PAIN Shoulder Right 2 View COMPARISON: None FINDINGS: 2 X-ray views of the right shoulder (internal and external rotation view) were performed. There is no evidence for fracture findings are highly suspicious for anterior inferior dislocation al though the absence of Y-view could not completely confirm findings. There are no gross intraosseous l esions. The AC joint demonstrate minimal degenerative changes. There is no evidence for separation. IMPRESSION: Findings highly suspicious for anterior inferior dislocation. Electronically signed by: Chaz Farr MD 03/25/2022 11:37 PM [employer] Due to temporary technical issues with the PACS/Fluency reporting system, reports are being signed by the in house radiologists without review as a courtesy to insure prompt reporting. The interpreting radiologist is fully responsible for the content of the report
--- NOTE | 2022-03-27 13:03 | RAD REPORT ---
EXAM DESCRIPTION: Elbow Right 3 View 03/25/2022 11:42 PM SPECTROSCOPIST CLINICAL HISTORY: 71 years, Female, PAIN Elbow Right 3 View COMPARISON: None. FINDINGS: 3 X-ray views of the right elbow (Frontal, lateral and oblique views) were performed. No acute bony injuries were demonstrated. No gross articular or soft tissue abnormality is identifi ed. There are no gross intraosseous lesions. No periosteal reaction were seen. IMPRESSION: Unremarkable examination of the right elbow. Electronically signed by: Chaz Farr MD 03/25/2022 11:43 PM SPECTROSCOPIST Due to temporary technical issues with the PACS/Fluency reporting system, reports are being signed by the in house radiologists without review as a courtesy to insure prompt reporting. The interpreting radiologist is fully responsible for the content of the report
--- NOTE | 2022-03-27 15:43 | RAD REPORT ---
EXAM DESCRIPTION: Shoulder Right 2 View 03/25/2022 11:36 PM STUDENT NURSE CLINICAL HISTORY: 71 years, Female, PAIN Shoulder Right 2 View COMPARISON: None FINDINGS: 2 X-ray views of the right shoulder (internal and external rotation view) were performed. There is no evidence for fracture. Findings are highly suspicious for anterior inferior dislocation a lthough the absence of Y-view could not completely confirm findings. There are no gross intraosseous lesions. The AC joint demonstrate minimal degenerative changes. There is no evidence for separation. IMPRESSION: Findings highly suspicious for anterior inferior dislocation. Electronically signed by: Chaz Farr MD 03/25/2022 11:37 PM STUDENT NURSE Due to temporary technical issues with the PACS/Fluency reporting system, reports are being signed by the in house radiologists without review as a courtesy to insure prompt reporting. The interpreting radiologist is fully responsible for the content of the report
== END 2022-03-26 02:22 | disposition home or self-care (01) ==
LOC: ER 22:14
PROC: 0RSJXZZ Reposition Right Shoulder Joint, External Approach (ICD-10-PCS; principal; 2022-03-26)
DX: S43.084A Other dislocation of right shoulder joint, initial encounter (principal); W18.30XA Fall on same level, unspecified, initial encounter; Z88.5 Allergy status to narcotic agent
CPT/HCPCS: 73080; 73060; 73030 ×2; 96375; 96374; 99283; 23655; J3010; J2270; J7050; J2405